=== PATIENT | female | born 1935 ===

== ENCOUNTER 2017-03-07 08:47 | Day surgery (SDC) | payer MEDICARE, OTHER ==
[~2017-03-07] VITALS: Ht 160 cm; Wt 70.5 kg
[~2017-03-07 08:47] MED LIST: BUPIVACAINE/PF 0.5% ONE; HEPARIN 1,000 UNITS/ML, 10ML ONE; PROTAMINE SULFATE 10 MG/ML, 5ML ONE
[2017-03-07] MEDS ORDERED: LACTATED RINGERS 1,000 ML IV SCH (10:56)
[2017-03-07 11:12] VITALS: BP 165/76
[2017-03-07] MEDS ORDERED: METO5TAB5 PO (11:12)
[2017-03-07] MEDS ORDERED: HYDR-3342 PO (11:12)
[2017-03-07] MEDS ORDERED: TRAV5DRO EACHEYE (11:12)
[2017-03-07] MEDS ORDERED: SAXA5TAB PO (11:12)
[2017-03-07] MEDS ORDERED: FOLATE (11:12)
[2017-03-07] MEDS ORDERED: MAGN400T36 PO (11:12)
[2017-03-07] MEDS ORDERED: ATOR-2 PO (11:12)
[2017-03-07] MEDS ORDERED: FENTANYL PF 100 MCG/2ML ONE (11:12)
[2017-03-07] MEDS ORDERED: AMLO10TA2 PO (11:12)
[2017-03-07] MEDS ORDERED: PROPOFOL 10 MG/ML, 20ML ONE (12:00)
[2017-03-07] MEDS ORDERED: DEXAMETHASONE 4 MG/ML, 1ML ONE (12:00)
[2017-03-07] MEDS ORDERED: CEFAZOLIN 1,000 MG ONE (12:00)
[2017-03-07] MEDS ORDERED: EPHEDRINE 50 MG/ML, 1ML ONE (12:00)
[2017-03-07] MEDS ORDERED: ONDANSETRON 2MG/ML, 2ML ONE (12:00)
[2017-03-07] MEDS ORDERED: PLEASE ENTER ALLERGIES MC SCH (12:00)
[2017-03-07] MEDS ORDERED: HYDROmorphone 1 MG/ML, 1ML IV PRN (12:30)
[2017-03-07] MEDS ORDERED: ONDANSETRON 2MG/ML, 2ML IVPush PRN (12:30)
[2017-03-07] MEDS ORDERED: OXYcodone 5 MG/5 ML ORAL.SOL UDC PO PRN (12:30)
[2017-03-07] MEDS ORDERED: FENTANYL PF 100 MCG/2ML IV PRN (12:30)
[2017-03-07] MEDS ORDERED: ACETAMINOPHEN 325 MG TABLET PO PRN (12:30)
[2017-03-07] MEDS ORDERED: HYDROcodone/APAP 7.5-325MG/15ML UDC PO PRN (12:30)
[2017-03-07] MEDS ORDERED: HEPARIN 5,000 UNITS/ML, 1ML ONE (12:56)
[2017-03-07] MEDS ORDERED: ACETAMINOPHEN 650 MG/20.3 ML UDC ONE (13:15)
[2017-03-07] MEDS ORDERED: OXYcodone 5 MG/5 ML ORAL.SOL UDC ONE (13:16)
[2017-03-07] MEDS ORDERED: HEPARIN 5,000 UNITS/ML, 1ML IV ONE (17:00)
== END 2017-03-07 15:25 ==
LOC: OUT 08:47 → EDBD 14:00 → OUT 15:25
PROVIDERS: ATTEND Surgery Vascular Surgery
DX: E11.22 Type 2 diabetes mellitus with diabetic chronic kidney disease (principal); I12.0 Hypertensive chronic kidney disease with stage 5 chronic kidney disease or end stage renal disease; N18.6 End stage renal disease
CPT/HCPCS: 36415; 36821; 80047; 93005; J0690; J1100; J1644; J2405; J2704; J2720; J3010; J3490

== ENCOUNTER 2017-04-11 08:40 | Day surgery (SDC) | payer MEDICARE, OTHER ==
[~2017-04-11] VITALS: Ht 160 cm; Wt 70.0 kg
[~2017-04-11 08:40] MED LIST changes: +AMLO10TA2 PO; +ATOR-2 PO; -BUPIVACAINE/PF 0.5% ONE; +FOLATE; +HYDR-3342 PO; +MAGN400T36 PO; +METO5TAB5 PO; -PROTAMINE SULFATE 10 MG/ML, 5ML ONE; +SAXA5TAB PO; +TRAV5DRO EACHEYE
[2017-04-11 09:14] VITALS: BP 162/64
[2017-04-11] MEDS ORDERED: SODIUM CHLORIDE 0.9% 1,000 ML IV SCH (10:01)
[2017-04-11] MEDS ORDERED: SEVELAMER (10:27)
[2017-04-11] MEDS ORDERED: DEXAMETHASONE 4 MG/ML, 1ML ONE (12:25)
[2017-04-11] MEDS ORDERED: CEFAZOLIN 1,000 MG ONE ×2 (12:25)
[2017-04-11] MEDS ORDERED: FENTANYL PF 100 MCG/2ML ONE (12:25)
[2017-04-11] MEDS ORDERED: ONDANSETRON 2MG/ML, 2ML ONE (12:25)
[2017-04-11] MEDS ORDERED: PROPOFOL 10 MG/ML, 20ML ONE (12:25)
[2017-04-11] MEDS ORDERED: LIDOCAINE PF 2%, 5ML ONE (12:56)
[2017-04-11] MEDS ORDERED: HYDROmorphone 1 MG/ML, 1ML IV PRN (13:30)
[2017-04-11] MEDS ORDERED: ACETAMINOPHEN 325 MG TABLET PO PRN (13:30)
[2017-04-11] MEDS ORDERED: MEPERIDINE/PF 25MG/0.5ML IVPush PRN (13:30)
[2017-04-11] MEDS ORDERED: LABETALOL 5MG/ML, 20ML IV PRN (13:30)
[2017-04-11] MEDS ORDERED: MIDAZOLAM 1 MG/ML, 2ML IV PRN (13:30)
[2017-04-11] MEDS ORDERED: PROMETHAZINE 12.5 MG SUPP PR PRN (13:30)
[2017-04-11] MEDS ORDERED: ALBUTEROL/IPRATROPIUM 2.5MG/0.5MG, 3 ML NPPB PRN (13:30)
[2017-04-11] MEDS ORDERED: ONDANSETRON 2MG/ML, 2ML IVPush PRN (13:30)
[2017-04-11] MEDS ORDERED: METOCLOPRAMIDE 5 MG/ML, 2ML IV PRN (13:30)
[2017-04-11] MEDS ORDERED: FENTANYL PF 100 MCG/2ML IV PRN (13:30)
[2017-04-11] MEDS ORDERED: hydrALAzine 20 MG/ML, 1ML IV PRN (13:30)
[2017-04-11] MEDS: OXYcodone 5 MG/5 ML ORAL.SOL UDC PO PRN ×2 (14:10→14:45)
[2017-04-11] MEDS ORDERED: OXYcodone 5 MG/5 ML ORAL.SOL UDC ONE ×2 (14:10→14:45)
[2017-04-11] MEDS ORDERED: ACETAMINOPHEN 650 MG/20.3 ML UDC ONE (14:10)
== END 2017-04-11 16:30 ==
LOC: OUT 08:40
PROVIDERS: ATTEND Surgery Vascular Surgery
DX: T82.590A Other mechanical complication of surgically created arteriovenous fistula, initial encounter (principal); E11.22 Type 2 diabetes mellitus with diabetic chronic kidney disease; I12.0 Hypertensive chronic kidney disease with stage 5 chronic kidney disease or end stage renal disease; N18.6 End stage renal disease; E78.5 Hyperlipidemia, unspecified; Y83.8 Other surgical procedures as the cause of abnormal reaction of the patient, or of later complication, without mention of misadventure at the time of the procedure; Y92.89 Other specified places as the place of occurrence of the external cause
CPT/HCPCS: 36415; 36819; 80047; 82962; J0690; J1100; J1644; J2405; J2704; J3010